=== PATIENT | male | born 1990 | race African-American/Black ===

== ENCOUNTER 2021-03-01 10:50 | Outpatient (REF) | payer OTHER, SELFPAY | END 2021-03-01 10:51 | disposition home or self-care (01) | LOC: HO.HMGCLDS 10:50 | PROVIDERS: Visit Provider Internal Medicine | DX: Z20.822 Contact with and (suspected) exposure to COVID-19 (principal) | CPT/HCPCS: C9803; U0003; U0005 ==

== ENCOUNTER 2022-03-15 17:06 | Emergency (ER) | payer OTHER, SELFPAY ==
--- NOTE | ~2022-03-15 | XR_ITS ---
EXAMINATION: XR ELBOW, RIGHT CLINICAL INFORMATION: Pain. Limited range of motion. COMPARISON: None TECHNIQUE: AP, lateral, and oblique views of the right elbow. FINDINGS: No acute fracture or dislocation. No joint effusion. On lateral view of the anterior aspect of the joint space there is a triangular corticated bone density measuring about 8 x 5 mm which has a corticated margin. May be a bone spur. If pain persists elbow joint could further assessed with CT or MRI. XR/XR elbow RT min 3V IMPRESSION: 1. No acute abnormality of the elbow. 2. Probable bone spur of the anterior aspect of the elbow joint. If pain persists consider CT or MRI.
[2022-03-15 17:20] VITALS: BP 143/86; PULSE 119; RESP 18; TEMP 36.2; O2SAT 97; BMI 32.5
--- NOTE | 2022-03-15 17:20 | ED.BACK ---
HPI - Back Pain/Injury General Chief Complaint: Back Pain/Injury <DEUCE Vines - Last Filed: 03/15/22 17:23> Stated Complaint: Back pain/R elbow pain <DEUCE Vines - Last Filed: 03/15/22 17:23> Time Seen by Provider: 03/15/22 17:31 <DEUCE Vines - Last Filed: 03/15/22 17:23> Source: patient <Benita Colón JAMES Valdes - Last Filed: 03/15/22 19:32> Mode of arrival: ambulatory <Benita Katarzyna Valdes CNP - Last Filed: 03/15/22 19:32> Limitations: no limitations <Benita Colón JAMES Valdes - Last Filed: 03/15/22 19:32> History of Present Illness HPI Narrative: Patient is a 31-year-old male presents emergency department for evaluation of back pain and right elbow pain. He states that he had onset of pain 5 days ago after work. He does report that he does heavy lifting at work often bending forward. Pain is felt diffusely across the lower back, it is described as a pulsating/throbbing pain, nonradiating. Additionally reporting pain to the right elbow, it is made worse with repetitive flexion/extension. Denies any weakness to the right upper extremity/hand, denies any numbness or tingling, denies redness or warmth, no rashes. So far he has trialed ibuprofen 400 mg on a single occasion which he states did not change his pain very much. Denies any history of similar pain in the past. Denies any specific precipitating injury, fevers, chills, burning with micturition, urinary frequency/urgency/hesitancy, bladder or bowel dysfunction, numbness or tingling of the perineum or bilateral legs. Denies any recent surgical procedures, any known immune compromising conditions, personal history of cancer, or IV drug usage. <Benita Valdes CNP - Last Filed: 03/15/22 19:32> MD elicited complaint: back pain <Benita Valdes CNP - Last Filed: 03/15/22 19:32> Related Data Home Medications: Previous Rx's Medication Instructions Recorded cyclobenzaprine 10 mg tablet 10 mg PO BEDTIME PRN muscle spasm 03/15/22 #10 tabs <DEUCE Vines - Last Filed: 03/15/22 17:23> Allergies/Adverse Reactions: Allergies Allergy/AdvReac Type Severity Reaction Status Date / Time No Known Allergies Allergy Verified 03/15/22 17:22 <DEUCE Vines - Last Filed: 03/15/22 17:23> Review of Systems Review of Systems: Constitutional: No weight loss, fever, chills, weakness or fatigue. HEENT: No visual loss, blurred vision, double vision. No hearing loss, sneezing, congestion, runny nose or sore throat. Skin: No rash or itching. Cardiovascular: No chest pain, chest pressure or chest discomfort. No palpitations or pedal edema. Respiratory: No shortness of breath, cough or sputum production. Gastrointestinal: No anorexia, nausea, vomiting or diarrhea. No abdominal pain or blood in stool. Genitourinary: No burning micturition. No urinary frequency or incontinence. Neurologic: No headache, dizziness, syncope, unilateral weakness, ataxia, numbness or tingling in the extremities. No change in bowel or bladder control. Musculoskeletal: + Back pain as noted in HPI. Positive right elbow pain as noted in HPI No joint pain or stiffness. Hematologic: No bleeding or bruising. Lymphatics: No enlarged lymph nodes. Psychiatric:No depression or anxiety. Endocrine: No reports of sweating. No cold or heat intolerance. No polyuria or polydipsia. <Benita Valdes CNP - Last Filed: 03/15/22 19:32> Yes all other systems are reviewed and are negative <Benita Valdes CNP - Last Filed: 03/15/22 19:32> [facility], LAT[facility] Past Medical History Attestation statement: The following information was validated with the patient. <Benita Valdes CNP - Last Filed: 03/15/22 19:32> Source: old records reviewed <Benita Valdes CNP - Last Filed: 03/15/22 19:32> Social History Social History: Social History Advance Directives: No Advance Directives Information Provided: No <DEUCE Vines - Last Filed: 03/15/22 17:23> Physical Exam Vital Signs: Vital Signs: Last Vital Signs Temp 97.1 F 03/15/22 17:20 Pulse 119 H 03/15/22 17:20 Resp 18 03/15/22 17:20 BP 143/86 H 03/15/22 17:20 Pulse Ox 97 03/15/22 17:20 O2 Del Method 03/15/22 17:20 BMI result Body Mass Index 32.5 <DEUCE Vines - Last Filed: 03/15/22 17:23> Vital Signs: Last Vital Signs Temp 97.1 F 03/15/22 17:20 Pulse 119 H 03/15/22 17:20 Resp 18 03/15/22 17:20 BP 143/86 H 03/15/22 17:20 Pulse Ox 97 03/15/22 17:20 O2 Del Method 03/15/22 17:20 BMI result Body Mass Index 32.5 <Benita Valdes CNP - Last Filed: 03/15/22 19:32> Appearance: Alert.?Oriented to person, place and time. No acute distress.?Normal affect. Eyes: Pupils equal, round and reactive to light.? ENT: Pharynx normal.?? Neck: Normal inspection.? Neck supple.?? CVS: Heart sounds normal. Normal heart rate and rhythm.? Pulses normal; bilateral radial pulses 2+, bilateral posterior tibial/dorsalis pedis pulses 2+.? Respiratory: No respiratory distress.? Lung sounds clear to auscultation bilaterally?? Abdomen: Soft and non-tender. Normoactive bowel sounds. No pulsatile mass.?? Skin: Skin warm and dry.? Normal skin color.??? Extremities: No lower extremity edema.? Back: + mild paraspinal muscular tenderness from lumbar region to coccyx. No CVA tenderness. No midline spinal tenderness, step-off's, or deformity. Full ROM intact in bilateral lower extremities. Straight leg test positive on right; Straight leg test positive on left. No rashes, lesions, areas of induration or fluctuance, or signs of infection noted. Right elbow with full range of motion no effusion, warmth, no objective weakness. Neuro: Moves all extremities spontaneously. 5/5 strength in hip extension/flexion, abduction, adduction. Sensation to light touch intact bilaterally. Patellar and Achilles reflex 2+ bilaterally. No ataxia, gait normal and steady.. No focal neuro deficits. <Benita Valdes CNP - Last Filed: 03/15/22 19:32> Course Course Course Narrative: RME - 31 yo male presents to the ER for evaluation of non-traumatic, constant, pulsating lower back pain for the last 5 days along with nontraumatic right elbow pain with limited ROM. No urinary symptoms. No red flag symptoms of low back pain. 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 Will get XR elbow. <DEUCE iVnes - Last Filed: 03/15/22 17:23> Reevaluation(s) Reevaluation #1: X-ray imaging of the right elbow reveals a bone spur, no acute fracture dislocation. Discussed plan of care with patient, rest, ice/heat, use of NSAID, outpatient follow-up with orthopedic provider for persistent symptoms, discussed potential for further management with steroid injections/physical therapy if symptoms do not improve. Regarding patient's lower back pain, reports pain to be worse after receiving cyclobenzaprine and ibuprofen. Patient is without any focal neurological deficits. At this time, physical examination has not changed, continues to not consistent with concern for cauda equina. Patient will receive diazepam intramuscular injection, advised that he will need to follow-up with primary care provider outpatient. I did discuss with him that disc herniation is possible, this would not be properly evaluated on x-ray imaging, but despite this would not change the management today. Prescription for cyclobenzaprine and ibuprofen were sent to patient's pharmacy. Reviewed worrisome signs and symptoms that would warrant re-evaluation in the emergency department. All questions answered. <Benita Valdes CNP - Last Filed: 03/15/22 19:32> Time: 18:55 <Benita Valdes CNP - Last Filed: 03/15/22 19:32> Medical Decision Making Medical Decision Making MDM Narrative: Patient is a 31-year-old male with no reported past medical history presenting to emergency department for evaluation of lower back pain and right elbow pain noticed after a day of work. He reports doing some heavy lifting at work, and thinks this may have brought the pain on. Patient was ambulatory with slow steady gait into the emergency department. At this time based on history physical examination, pain appears most consistent with muscular pain, although cannot completely exclude herniated disc. On neurological exam there are no deficits. Not consistent with spinal fracture, spinal infection, epidural abscess, AAA, epidural abscess, or dissection. No high risk past medical history including incontinence, fever, immunosuppression, recent surgery or lumbar puncture, coagulopathy, significant trauma, recent unintentional weight loss, pulsatile mass, history of cancer, history of TB, history of IV drug use that would warrant MRI or CT. Not consistent with pyelonephritis, urinary tract infection, renal calculi, appendicitis, diverticulitis. On exam no concern for cauda equina syndrome. No imaging is currently indicated at this time. Right elbow without acute deformity, diffuse tenderness upon palpation over medial and lateral epicondyle, no erythema, no warmth. Does not appear consistent with septic joint. Will obtain XR imaging for further evaluation. Patient to receive ibuprofen and cyclobenzaprine orally while in the emergency department. Disposition pending results. <Benita Valdes CNP - Last Filed: 03/15/22 19:32> Differential Diagnosis Differential Diagnoses: The differential diagnosis associated with the presentation includes (As noted above) <Benita Valdes CNP - Last Filed: 03/15/22 19:32> Independent Interpretation I performed an independent interpretation of an: Plain X-Ray (Elbow x-ray, agree with radiologist impression) <Benita Valdes CNP - Last Filed: 03/15/22 19:32> Radiology Impression Discussion of test interpretation with radiology: I have reviewed the radiologist's reading. <Benita Valdes CNP - Last Filed: 03/15/22 19:32> Radiologist Impression: XR/XR elbow RT min 3V IMPRESSION: 1.? No acute abnormality of the elbow. 2.? Probable bone spur of the anterior aspect of the elbow joint. If pain persists consider CT or MRI. <Benita Valdes CNP - Last Filed: 03/15/22 19:32> Prescription Management I considered prescription management with: Pain Medication <Benita Valdes CNP - Last Filed: 03/15/22 19:32> Discharge Plan Discharge Clinical Impression: Bone spur, Strain of lumbar region <DEUCE Vines - Last Filed: 03/15/22 17:23> Patient Disposition: Home, Self-Care <DEUCE Vines - Last Filed: 03/15/22 17:23> Instructions: Low Back Strain (ED), Acute Low Back Pain (ED), Lower Back Exercises (ED) <DEUCE Vines - Last Filed: 03/15/22 17:23> Additional Instructions: As discussed, the x-ray of your right elbow did not reveal any fracture or dislocation. There is presence of a bone spur to the bony outgrowth, which is likely the cause of your pain. This is likely developing over time. You can take ibuprofen 200 mg, 3 tablets (600mg) every 6-8 hours as needed for pain, in addition to Tylenol 500 mg, 2 tablets (1,000mg) every 4-6 hours as needed for pain, but not to exceed 3 doses daily (3,000mg).? You have also been provided contact information for the orthopedic office to arrange for follow-up, they may consider steroid injections, and/or physical therapy if your symptoms persist. Regarding lower back pain, you will need to contact your primary care provider to arrange for further follow-up. If your pain is not relieved with Tylenol/ibuprofen, you may use cyclobenzaprine as prescribed. This is muscle relaxer, and it may make you drowsy. You should not drive, drink alcohol, or work while taking this medication. You may return back to the emergency department with any new or worsening symptoms or concerns. <DEUCE Vines - Last Filed: 03/15/22 17:23> Prescriptions: New cyclobenzaprine 10 mg tablet 10 mg PO BEDTIME PRN (Reason: muscle spasm) Qty: 10 0RF <DEUCE Vines - Last Filed: 03/15/22 17:23> Referrals: Jammie Mccray PA-C [Physician Strategy Consultant] - <DEUCE Vines - Last Filed: 03/15/22 17:23>
[2022-03-15] MEDS: Cyclobenzaprine HCl 10 MG TABLET PO (18:14)
[2022-03-15] MEDS: Ibuprofen 600 MG TABLET PO (18:14)
[2022-03-15] MEDS: diazePAM 10 MG/2 ML CARTRIDGE 2.5 MG IM (19:54)
[2022-03-15 19:56] VITALS: BP 119/76; PULSE 91; RESP 20; O2SAT 99
--- NOTE | 2022-03-15 19:57 | PC.NURSE ---
patient reports continued 10/10 back pain traveling down both legs- medicated per order
[2022-03-15 21:04] VITALS: BP 134/77; PULSE 66; RESP 16; O2SAT 99
== END 2022-03-15 21:06 | disposition home or self-care (01) ==
PROVIDERS: Emergency Provider Emergency Medicine Emergency Medical Services
DX: M77.8 Other enthesopathies, not elsewhere classified (principal); M25.521 Pain in right elbow; S39.012A Strain of muscle, fascia and tendon of lower back, initial encounter; X50.0XXA Overexertion from strenuous movement or load, initial encounter; Y93.89 Activity, other specified; Y92.59 Other trade areas as the place of occurrence of the external cause; Y99.0 Civilian activity done for income or pay
CPT/HCPCS: 73080; 96372; 99284; J3360